=== PATIENT | male | born 2000 | race Caucasian/White ===

== ENCOUNTER 2024-03-29 10:18 | Emergency (ER) | payer SELFPAY ==
[~2024-03-29] VITALS: Ht 180.3 cm; Wt 75.0 kg
[~2024-03-29 10:18] MED LIST: OMNICEF 300MG300 MG PO
[2024-03-29 10:21] VITALS: TEMP 98.1
[2024-03-29] MEDS ORDERED: SEROQUEL 2525 MG/TAB PO ×2 (10:35)
[2024-03-29] MEDS ORDERED: Ondansetron 4 MG/2 ML VIAL IV ONE (10:45)
[2024-03-29] MEDS ORDERED: NS 1,000 ML IV ONE (10:45)
[2024-03-29 10:58] LABS: BASO % 0.2 % (0.0-2.0); GRAN # 14.5 K/mm3 (1.4-6.5); GRAN % 88.9 % (42.2-75.2); HEMATOCRIT 47.3 % (42.0-52.0); HEMOGLOBIN 16.9 g/dl (13.5-18.0); LYMPH % 6.2 % (20.0-51.0); MEAN CELL VOLUME 87 fl (80.0-100.0); MEAN CORPUSCULAR HEMOGLOBIN 31 pg (27-31); MEAN CORPUSCULAR HGB CONC 36 g/dl (33.0-37.0); MEAN PLATELET VOLUME 9.2 fl (7.4-10.4); MONO # 0.7 K/mm3 (0.1-0.6); MONO % 4.3 % (1.7-9.3); PLATELET COUNT 303 K/mm3 (130-400); RED BLOOD COUNT 5.42 M/mm3 (4.20-5.60)
[2024-03-29 11:16] LABS: BILIRUBIN,TOTAL 1.1 mg/dL (0.2-1.2); CALCIUM 10.6 mg/dL (8.4-10.2); CREATININE, serum 0.94 mg/dL (0.72-1.25); POTASSIUM 4.7 mEq/L (3.5-4.5); TOTAL PROTEIN 8.3 g/dl (6.2-8.1)
[2024-03-29] MEDS ORDERED: ZOFRAN ODT4 MG PO (11:43)
[2024-03-29 12:00] VITALS: BP 113/68; PULSE 91
== END 2024-03-29 12:04 | disposition home or self-care (01) ==
LOC: COL.ER 10:18
PROVIDERS: Nurse Practitioner
DX: R11.2 Nausea with vomiting, unspecified (principal); E86.0 Dehydration; F17.200 Nicotine dependence, unspecified, uncomplicated
CPT/HCPCS: J2405; J7030

== ENCOUNTER 2024-05-21 11:36 | Emergency (ER) | payer SELFPAY ==
[~2024-05-21] VITALS: Ht 182.9 cm; Wt 75.0 kg
[~2024-05-21 11:36] MED LIST changes: +SEROQUEL 2525 MG/TAB PO; +ZOFRAN ODT4 MG PO
[2024-05-21 11:59] VITALS: TEMP 98.1
[2024-05-21] MEDS ORDERED: Famotidine 20 MG TAB PO ONE (13:30)
[2024-05-21 13:56] VITALS: BP 140/77; PULSE 58
== END 2024-05-21 13:56 | disposition home or self-care (01) ==
LOC: COL.ER 11:36
DX: K21.9 Gastro-esophageal reflux disease without esophagitis (principal); F17.290 Nicotine dependence, other tobacco product, uncomplicated